=== PATIENT | male | born 1930 | race Caucasian/White ===

== ENCOUNTER 2019-03-01 20:06 | Emergency (ER) | payer MEDICARE, OTHER ==
--- NOTE | 2019-03-01 20:19 | EDM.PDOC ---
ED HPI GENERAL MEDICAL PROBLEM - General Chief Complaint: Trauma Stated Complaint: [facility] Time Seen by Provider: 03/01/19 20:07 Source of Information: Reports: Patient, Family (3 sons) History Limitations: Reports: No Limitations - History of Present Illness INITIAL COMMENTS - FREE TEXT/NARRATIVE: A trauma alert was called for this patient, as the patient is on Plavix. Mr. Cruz is a very pleasant 88-year-old man with a past medical history significant for a possible TIA and anxiety due to severe claustrophobia, that he has had all of his life. The patient states that he went to the bathroom in his home just after 19:00 tonight, and as soon as he was in there, started feeling claustrophobic and anxious. He states that he was breathing heavily. He states that he was in the bathroom for about 5 minutes before he had to get out of there, and about the time that he exited the bathroom, he suffered a syncopal episode, falling forward and striking the left side of his face. I am told by the patient's son, who is an EMT in [place] and is present in the ED tonight, that the patient's daughter, who was at the patient's residence, heard the patient fall and called her brother. The patient's son states that he was by his father's side within 5 minutes of the event, and by that time, the patient was lucid. The patient denies prior similar events. The patient denies recent illness, such as fever, chills, cough, dyspnea, chest pain, palpitations, nausea, vomiting, constipation, diarrhea, abdominal pain, urinary symptoms, his weight gain or weight loss, recent bloody bowel movements or black bowel movements, recent joint aches, headaches, or rashes. The [facility] [place]. - Related Data Allergies Allergy/AdvReac Type Severity Reaction Status Date / Time No Known Allergies Allergy Verified 03/01/19 20:20 Home Meds: Home Meds Aspirin [Halfprin] 81 mg PO DAILY 03/01/19 [History] Budesonide/Formoterol Fumarate [Symbicort 160-4.5 Mcg Inhaler] 2 puff INH BID [History] Cholecalciferol (Vitamin D3) [Vitamin D3] 0 unit PO DAILY 03/01/19 [History] Citalopram [Citalopram HBr] 10 mg PO DAILY 03/01/19 [History] Clopidogrel [Plavix] 75 mg PO DAILY 03/01/19 [History] Furosemide [Lasix] 40 mg PO ASDIRECTED 03/01/19 [History] Lisinopril [Zestril] 40 mg PO DAILY 03/01/19 [History] Tiotropium [Spiriva] 1 puff INH DAILY 03/01/19 [History] atorvaSTATin [Lipitor] 0 mg PO DAILY 03/01/19 [History] Past Medical History Cardiovascular History: Reports: Heart Failure (mild, diastolic), High Cholesterol, Hypertension Genitourinary History: Reports: BPH Musculoskeletal History: Reports: Arthritis, Fracture (left foot) Neurological History: Reports: TIA (possible) Psychiatric History: Reports: Anxiety, Other (See Below) (Severe claustrophobia) Endocrine/Metabolic History: Reports: Obesity/BMI 30+ - Past Surgical History HEENT Surgical History: Reports: Cataract Surgery (bilateral) GI Surgical History: Reports: Colonoscopy Social & Family History - Tobacco Use Smoking Status *Q: Former Smoker Month/Year Tobacco Last Used: Quit 1994 - Alcohol Use Alcohol Use History: Yes Alcohol Use Frequency: Daily (1-2 drinks) - Recreational Drug Use Recreational Drug Use: No - Living Situation & Occupation Living situation: Reports: , Alone (spouse in [place]) Occupation: Retired Review of Systems - Review of Systems Review Of Systems: Comprehensive ROS is negative, except as noted in HPI. ED EXAM, GENERAL - Physical Exam Exam: See Below Exam Limited By: No Limitations General Appearance: Alert, WD/WN, No Apparent Distress Eye Exam: Right Eye: Normal Inspection, Left Eye: Periorbital Changes ( Ecchymosis and swelling), Bilateral Eye: EOMI Ears: Normal External Exam, Normal Canal, Hearing Grossly Normal, Normal TMs Nose: Normal Inspection, Normal Mucosa, No Blood Throat/Mouth: Normal Inspection, Normal Lips, Normal Teeth, Normal Gums, Normal Oropharynx, Normal Voice, No Airway Compromise Head: Normocephalic, Other (Approximately 1.5 cm laceration left forehead containing an arterial bleed) Neck: Normal Inspection, Supple, Non-Tender, Full Range of Motion Respiratory/Chest: No Respiratory Distress, Lungs Clear, Normal Breath Sounds, No Accessory Muscle Use Cardiovascular: Normal Peripheral Pulses, Regular Rate, Rhythm, No Edema, No Gallop, No JVD, No Murmur, No Rub Peripheral Pulses: 4+: Radial (L), Radial (R) GI/Abdominal: Normal Bowel Sounds, Soft, Non-Tender, No Organomegaly, No Distention, No Abnormal Bruit, No Mass (Male) Exam: Deferred Rectal (Males) Exam: Deferred Back Exam: Normal Inspection, Full Range of Motion, NT Extremities: Normal Inspection, Normal Range of Motion, No Pedal Edema, Normal Capillary Refill Neurological: Alert, Oriented, CN II-XII Intact, Normal Cognition, No Motor/ Sensory Deficits Psychiatric: Normal Affect Skin Exam: Warm, Dry, Intact, Normal Color, No Rash ED TRAUMA PROCEDURES - Laceration/Wound Repair Left Forehead Lac/Wound Length In cm: 3.0 Appearance: Subcutaneous, Irregular, Clean Distal NVT: Neuro & Vascular Intact, No Tendon Injury Anesthetic Type: Local Local Anesthesia - Lidocaine (Xylocaine): 1% with EPI Local Anesthetic Volume: 2cc Skin Prep: Providone-Iodine (Betadine) Exploration/Debridement/Repair: Wound Explored, In a Bloodless Field, Explored to Base, No Foreign Material Found Closed With: Sutures Suture Size: 3-0 # of Sutures: 11 Suture Type: Nylon (F:), Running Drain Placement: No Sterile Dressing Applied: None Tetanus Status Addressed: Yes Complications: No EKG INTERPRETATION EKG Date: 03/01/19 Time: 20:14 Rhythm: NSR (with 2 PACs and 1 PVC) Rate (Beats/Min): 76 [place]: Normal P-Wave: Present QRS: Normal ST-T: Normal QT: Prolonged (QTc 600 ms) Comparison: NA - No Prior EKG Course - Vital Signs Last Recorded V/S: Last Vital Signs Temp 36.4 C 03/01/19 20:32 Pulse 73 03/01/19 20:32 Resp 33 H 03/01/19 20:32 BP 145/76 H 03/01/19 20:32 Pulse Ox 87 L 03/01/19 20:32 Orthostatic Blood Pressure [ 148/85 Standing] Orthostatic Blood Pressure [ 142/93 Supine] - Orders/Labs/Meds Orders: Active Orders 24 hr Category Date Time Status EKG Documentation Completion [RC] STAT Care 03/01/19 20:22 Active Orthostatic Vital Signs [RC] STAT Care 03/01/19 20:21 Active Labs: Laboratory Tests 03/01/19 03/01/19 03/01/19 Range/Units 20:30 20:30 20:30 WBC 4.76 (4.23-9.07) K/mm3 RBC 4.32 L (4.63-6.08) M/mm3 Hgb 13.9 (13.7-17.5) gm/dl Hct 41.6 (40.1-51.0) % MCV 96.3 H (79.0-92.2) fl MCH 32.2 (25.7-32.2) pg MCHC 33.4 (32.2-35.5) g/dl RDW Std Deviation 47.8 H (35.1-43.9) fL Plt Count 130 L (163-337) K/mm3 MPV 10.7 (9.4-12.3) fl Neut % (Auto) 70.0 H (34.0-67.9) % Lymph % (Auto) 19.5 L (21.8-53.1) % [place] % (Auto) 10.3 (5.3-12.2) % Eos % (Auto) 0 L (0.8-7.0) Baso % (Auto) 0.2 (0.1-1.2) % Neut # (Auto) 3.33 (1.78-5.38) K/mm3 Lymph # (Auto) 0.93 L (1.32-3.57) K/mm3 [place] # (Auto) 0.49 (0.30-0.82) K/mm3 Eos # (Auto) 0.00 L (0.04-0.54) K/mm3 Baso # (Auto) 0.01 (0.01-0.08) K/mm3 D-Dimer, Quantitative 0.51 H (0.19-0.50) mg/L Sodium 139 (136-145) mEq/L Potassium 3.9 (3.5-5.1) mEq/L Chloride 104 (98-107) mEq/L Carbon Dioxide 26 (21-32) mEq/L Anion Gap 12.9 (5-15) BUN 19 H (7-18) mg/dL Creatinine 1.0 (0.7-1.3) mg/dL Est Cr Clr Drug Dosing 44.42 mL/min Estimated GFR (MDRD) > 60 (>60) mL/min BUN/Creatinine Ratio 19.0 H (14-18) Glucose 106 (83-115) mg/dL Calcium 8.5 (8.5-10.1) mg/dL Magnesium 1.9 (1.8-2.4) mg/dl Total Bilirubin 0.4 (0.2-1.0) mg/dL AST 26 (15-37) U/L ALT 38 (16-63) U/L Alkaline Phosphatase 83 (46-116) U/L Troponin I 0.026 (0.00-0.056) ng/mL Total Protein 6.4 (6.4-8.2) g/dl Albumin 3.5 (3.4-5.0) g/dl Globulin 2.9 gm/dL Albumin/Globulin Ratio 1.2 (1-2) Meds: Medications Discontinued Medications Generic Name Dose Route Start Last Admin Trade Name Freq PRN Reason Stop Dose Admin Lidocaine/Epinephrine 20 ml 03/01/19 21:27 03/01/19 21:36 Xylocaine 1% With Epinephrine 1:100,000 INJECT 03/01/19 21:28 20 ml ONETIME ONE Administration - Re-Assessments/Exams Free Text/Narrative Re-Assessment/Exam: 03/01/19 20:17 Because the patient is on Plavix, and because we have no prior imaging study of his head on record (the patient has not been to this ED previously) I have ordered a CT of his head without contrast, in addition to a workup that will include blood work, orthostatics, and an ECG. 03/01/19 20:48 CT of the head without contrast is read by Dr. Garcia as: 1. Soft tissue swelling and soft tissue injury as noted above. 2. No acute intracranial abnormality is appreciated. No acute skull fracture is seen. 03/01/19 21:14 The patient is not orthostatic. 03/01/19 21:24 The patient's CBC is remarkable for platelets mildly depressed at 130,000, with the remainder of his CBC being unremarkable. His CMP is remarkable for a BUN slightly elevated at 19 with a creatinine normal at 1.0. The remainder of his CMP is unremarkable. His magnesium level is within normal limits at 1.2. His troponin is within normal limits at 0.026. His D-dimer is slightly elevated at 0.51. The patient's slightly elevated D-dimer is not consistent with a pulmonary embolus, therefore I am not recommending a CT angiogram of the chest. 03/01/19 22:00 The patient's left forehead laceration was anesthetized with 1% lidocaine with epinephrine and was then approximated with 11 simple running sutures using 3-0 Ethilon. the patient tolerated the procedure very well. The sutures should be ready for removal by 03/11/2019. I suspect that the patient hyperventilated while in the bathroom, then suffered a syncopal episode when he exited the bathroom. I do not suspect a seizure, as he was not postictal when his son arrived about 5 minutes after the event, and his labs are not consistent with a patient recently suffering a seizure. We discussed the option of the patient being placed into observation, however, the patient would prefer to go home. Departure - Departure Time of Disposition: 22:05 Disposition: Home, Self-Care 01 Condition: Good Clinical Impression: Syncope and collapse, Forehead laceration, Ecchymosis of left eye - Discharge Information *PRESCRIPTION DRUG MONITORING PROGRAM REVIEWED*: Not Applicable *COPY OF PRESCRIPTION DRUG MONITORING REPORT IN PATIENT GEORGE: Not Applicable Instructions: Laceration Care, Adult, [id number], Syncope, [id number] Referrals: Akanksha Romero PA-C [Ordering Only Provider] - Forms: ED Department Discharge Additional Instructions: You were seen in the emergency room after passing out, falling, and cutting your forehead. Workup in the ER included blood work, positional blood pressure checks, an ECG, and a CT scan of your head without contrast. Your entire workup was unremarkable. You have not suffered a stroke. You have not suffered a heart attack. You do not have a blood clot in your lungs. You are not anemic. No electrolyte abnormalities were found. You are not dehydrated. Based on your history and physical exam, you most likely passed out because you were hyperventilating while in the bathroom, due to claustrophobia. The cut on your forehead was closed with 11 running sutures. Keep the wound clean with ordinary soap and water when you bathe. Pat dry. You may place a bandage over the wound, especially at night, to prevent blood from getting on your pillowcase. You do not need to apply antibiotic ointment. Take [id number] Tylenol or ibuprofen as needed for discomfort. The sutures should be ready for removal by 03/11/2019. They can be removed at the walk-in clinic, by a nurse at your doctor's office, or in the ER. Do not try to remove them yourself. Follow-up with your PCP, JESSIKA Escobar, to discuss treatment options for your claustrophobia-induced anxiety. If any other problems, please do not hesitate to return to the ER. Sepsis Event Note - Focused Exam Vital Signs: Vital Signs Temp Pulse Resp BP Pulse Ox 03/01/19 20:32 36.4 C 73 33 H 145/76 H 87 L 03/01/19 20:19 87 25 H 153/114 H Date Exam was Performed: 03/01/19 Time Exam was Performed: 22:48 - My Orders Last 24 Hours: My Active Orders 03/01/19 20:21 Orthostatic Vital Signs [RC] STAT 03/01/19 20:22 EKG Documentation Completion [RC] STAT - Assessment/Plan Last 24 Hours: My Active Orders 03/01/19 20:21 Orthostatic Vital Signs [RC] STAT 03/01/19 20:22 EKG Documentation Completion [RC] STAT
--- NOTE | 2019-03-01 20:45 | CT ---
Head CT Technique: Multiple axial sections through the brain were obtained. Intravenous contrast was not utilized. Comparison: No prior intracranial imaging is available. Findings: Soft tissue swelling is noted within the left periorbital region and left forehead scalp. Soft tissue injury is also noted in this area with overlying bandage being seen. Ventricles along with basal cisterns and sulci over the convexities are moderately prominent. Diminished density is noted within the periventricular white matter and subcortical white matter compatible with small vessel ischemic demyelination change. No other abnormal parenchymal densities are seen. No evidence of intracranial hemorrhage. No midline shift or mass effect is seen. Atherosclerotic calcification is seen within the vertebral vessels and within the carotid siphon. No acute calvarial abnormality is appreciated. No acute paranasal sinus disease is seen. No acute mastoid sinus disease is seen. Impression: 1. Soft tissue swelling and soft tissue injury as noted above. 2. No acute intracranial abnormality is appreciated. No acute skull fracture is seen. Diagnostic code #2 Study was dictated in [place] Standard Time
[2019-03-01] MEDS ORDERED: Lidocaine 1% with EPINEPHrine 1:100,000 20 ML MDV INJECT ONE (21:27)
== END 2019-03-01 22:43 | disposition home or self-care (01) ==
LOC: JD.ED 20:06
DX: R55 Syncope and collapse (principal); S01.81XA Laceration without foreign body of other part of head, initial encounter; I11.0 Hypertensive heart disease with heart failure; I50.30 Unspecified diastolic (congestive) heart failure; E78.00 Pure hypercholesterolemia, unspecified; M19.90 Unspecified osteoarthritis, unspecified site; F41.9 Anxiety disorder, unspecified; E66.9 Obesity, unspecified; Z68.36 Body mass index [BMI] 36.0-36.9, adult; Z87.891 Personal history of nicotine dependence; Z79.82 Long term (current) use of aspirin; Z79.02 Long term (current) use of antithrombotics/antiplatelets; Z79.899 Other long term (current) drug therapy; W19.XXXA Unspecified fall, initial encounter; W22.8XXA Striking against or struck by other objects, initial encounter; Y92.000 Kitchen of unspecified non-institutional (private) residence as the place of occurrence of the external cause
CPT/HCPCS: 12013; 36415; 70450; 70450-26; 80053; 83735; 84484; 85025; 85379; 93005; 93010; 99282; 99285-25

== ENCOUNTER 2020-03-22 22:25 | Emergency (ER) | payer OTHER, MEDICARE ==
--- NOTE | 2020-03-22 22:56 | EDM.PDOC ---
ED HPI GENERAL MEDICAL PROBLEM - General Chief Complaint: Respiratory Problem Stated Complaint: COUGHING POST OPEN HEART SURGERY +1 MONTH AGO Time Seen by Provider: 03/22/20 22:36 Source of Information: Reports: Patient, Family (Son) History Limitations: Reports: No Limitations - History of Present Illness INITIAL COMMENTS - FREE TEXT/NARRATIVE: Mr. Cruz is a pleasant 89-year-old gentleman who presents to the ED after he developed a paroxysmal non-productive cough around 19:30 tonight, after drinking a liquid sleep aid. He may have aspirated the medicine. No associated dyspnea. EMS was called to the patient's residence. They reportedly gave the patient a neb treatment, which did not help, however, the patient declined their transfer to the ED, having his son bring him instead. The patient states that he often gets similar symptoms, although not necessarily as severe, after eating or drinking foods. Here in the ED, the patient's initial BP is found to be modestly elevated at 155/82, otherwise, he is hemodynamically stable, afebrile, saturating 93% on room air. 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 Otherwise, the patient denies having a recent fever, chills, sore throat, ear pain, nasal or sinus congestion, cough, dyspnea, chest pain, palpitations, nausea, vomiting, constipation, diarrhea, abdominal pain, urinary symptoms, recent weight gain or weight loss, recent bloody bowel movements or black bowel movements, recent joint aches, headaches, or rashes. The patient's PCP is Dr. Krysta Rincon, at the [facility]. He does not recall the name of his Cardiac Surgeon at [facility] - I later learned that it was Drs. Gomez and Brenna. He states that he already received an influenza vaccine this season. - Related Data Allergies Allergy/AdvReac Type Severity Reaction Status Date / Time No Known Allergies Allergy Verified 03/22/20 22:36 Home Meds: Home Meds Aspirin [Halfprin] 81 mg PO DAILY 03/01/19 [History] Budesonide/Formoterol Fumarate [Symbicort 160-4.5 Mcg Inhaler] 1 puff INH BID 03/01/19 [History] Cholecalciferol (Vitamin D3) [Vitamin D3] 1,000 unit PO DAILY 03/01/19 [History] Citalopram [Citalopram HBr] 20 mg PO DAILY 03/01/19 [History] Clopidogrel [Plavix] 75 mg PO DAILY 03/01/19 [History] Furosemide [Lasix] 20 mg PO ASDIRECTED 03/01/19 [History] atorvaSTATin [Lipitor] 40 mg PO DAILY 03/01/19 [History] Acetaminophen 650 mg PO Q6HR PRN 03/22/20 [History] Albuterol Sulfate [Albuterol Sulfate HFA] 8.5 gm INH Q4HR PRN 03/22/20 [History] Metoprolol Succinate [Toprol Xl] 50 mg PO DAILY 03/22/20 [History] Potassium Chloride 20 meq PO BID 03/22/20 [History] oxyCODONE HCl/Acetaminophen [Percocet 5-325 mg Tablet] 1 each PO Q4H PRN 03/22/20 [History] Past Medical History HEENT History: Reports: Impaired Vision Cardiovascular History: Reports: Heart Failure (mild, diastolic), High Cholesterol, Hypertension Genitourinary History: Reports: BPH Musculoskeletal History: Reports: Fracture (left foot), Osteoarthritis Neurological History: Reports: TIA (possible) Psychiatric History: Reports: Anxiety, Other (See Below) (Severe claustrophobia) Endocrine/Metabolic History: Reports: Obesity/BMI 30+ - Past Surgical History HEENT Surgical History: Reports: Cataract Surgery (bilateral) Cardiovascular Surgical History: Reports: Valve Replacement (Fry LARRY 3 transcatheter aortic valve replacement, 02/19/2020 at [facility], 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 ED EXAM, GENERAL - Physical Exam Exam: See Below Exam Limited By: No Limitations General Appearance: Alert, WD/WN, No Apparent Distress (coughs frequently) Eye Exam: Bilateral Eye: EOMI, Normal Inspection Ears: Normal External Exam, Hearing Grossly Normal Nose: Normal Inspection Throat/Mouth: Normal Inspection, Normal Lips, Normal Voice, No Airway Compromise Head: Atraumatic, Normocephalic Neck: Normal Inspection, Full Range of Motion Respiratory/Chest: No Respiratory Distress, Lungs Clear, Normal Breath Sounds, No Accessory Muscle Use. No: Decreased Breath Sounds, Crackles, Rhonchi, Wheezing, Stridor, Prolonged Expiration Cardiovascular: Normal Peripheral Pulses, Regular Rate, Rhythm, No Gallop, No JVD, No Murmur, No Rub Peripheral Pulses: 3+: Radial (L), Radial (R) GI/Abdominal: Normal Bowel Sounds, Soft, Non-Tender, No Organomegaly, No Distention, No Abnormal Bruit, No Mass Back Exam: Normal Inspection, Full Range of Motion, NT Extremities: Normal Inspection, Normal Range of Motion, No Pedal Edema, Normal Capillary Refill Neurological: Alert, Oriented, Normal Cognition, No Motor/Sensory Deficits Psychiatric: Normal Affect Skin Exam: Warm, Dry, Intact, Normal Color, No Rash #1 Interpretation EKG Date: 03/22/20 Time: 22:41 Rhythm: Other (Ectopic atrial rhythm) Rate (Beats/Min): 73 [place]: Normal QRS: LBBB QT: Normal Comparison: Change From Previous EKG (Was in NSR with no LBBB on 03/01/2019) Course - Vital Signs Last Recorded V/S: Last Vital Signs Temp 36.1 C 03/22/20 22:33 Pulse 82 03/22/20 23:05 Resp 18 03/22/20 23:05 BP 140/64 03/22/20 23:05 Pulse Ox 92 L 03/22/20 23:05 - Orders/Labs/Meds Orders: Active Orders 24 hr Category Date Time Status EKG 12 Lead [EKG Documentation Completion] [RC] ROUTINE Care 03/22/20 22:40 Active Chest 2V [CR] Stat Exams 03/22/20 22:46 Taken - Re-Assessments/Exams Free Text/Narrative Re-Assessment/Exam: 03/22/20 22:47 As above, the patient began coughing after drinking a liquid sleep aid around 19:30 tonight. He likely aspirated all or some of the medication, causing her tracheal irritation. Although his oxygen saturation is only 93% on room air, his lungs are entirely clear to auscultation with no stridor or crackles. I have ordered a chest x-ray to evaluate for an infiltrate. 03/22/20 23:03 Two-view chest radiograph reviewed. 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 The cardiac silhouette is within normal limits, however, the aorta is tortuous. There is aortosclerosis. Sternotomy wires and a transcatheter aortic valve replacement mesh seen in appropriate position. No pulmonary vascular congestion. No pleural effusions. No focal infiltrate. No pneumothorax. There is hyperinflation and bilateral diaphragmatic flattening, consistent with COPD. Formal read per the Radiologist pending. 03/22/20 23:32 The patient's CXR images were pushed to [facility]. Case discussed with Hu at [facility] at 23:23. He looked the patient up and found that the surgery had been done by Drs. Gomez and Brenna. Case then discussed with Dr. Ceja, Cardiac Surgeon, at 23:30. He recalled that the patient received an Fry LARRY 3 TAVR, and that he suffered a c atheter perforation of his LV requiring return to the OR for sternotomy and repair. He feels, however, that consuelo's presentation is simply due to aspiration, and is not a complication of his surgery. 03/22/20 23:47 ECG and chest x-ray results, and my conversation with Dr. Ceja discussed with the patient and his son. Unfortunately, there are no medicines that I can give to treat his cough, since the source of his cough is from irritation of his trachea. Had the source of his cough been from the cough center of his brainstem, and opioid could be given, but an opioid would not be effective in this case. This will simply have to run its course. I offered to keep the patient here for observation, but he would prefer to go home. For consuelo's purposes, I am recommending that he remain more upright until the coughing stops. In the future, he can try to prevent aspiration by putting ThickenUp in his liquids, and trying a chin tuck maneuver when swallowing. If his symptoms persist or if he recurrently aspirates, he will need to follow-up with his PCP to arrange for a swallow study. Departure - Departure Time of Disposition: 23:49 Disposition: Home, Self-Care 01 Condition: Good Clinical Impression: Aspiration of liquid - Discharge Information *PRESCRIPTION DRUG MONITORING PROGRAM REVIEWED*: Not Applicable *COPY OF PRESCRIPTION DRUG MONITORING REPORT IN PATIENT GEORGE: Not Applicable Referrals: Krysta Rincon MD [Primary Care Provider] - Nick Gomez MD [Ordering Only Provider] - Kwadwo Ceja MD [Ordering Only Provider] - Forms: ED Department Discharge Additional Instructions: You were seen in the emergency room after developing a cough after drinking a liquid sleeping medicine tonight. Work-up in the ER included an ECG and a chest x-ray. Both were unremarkable. You do not have pneumonia or pneumonitis. Your case was discussed with your Cardiac Surgeon Dr. Kwadwo Ceja. Both he and I agree that the cause of your cough is most likely due to aspiration = some or all of the medicine that you drank tonight went down the windpipe in stead of the food pipe, causing irritation of your trachea, causing your cough. Unfortunately, there are no medicines that can be given at this time to stop your cough - it will have to run its course. We recommend that you stay in a more upright position tonight, until your cough stops. In the future, consider putting ThickenUp in your thin liquids, such as coffee, tea, or even water. This will make your liquids thicker, making it easier for your swallowing mechanism to put the liquid down the food pipe instead of the windpipe. In addition, consider performing a "chin tuck" maneuver when swallowing, by pulling your head backwards and tipping your chin down when you swallow liquids. If your symptoms persist or recur, please follow-up with your PCP, Dr. Krysta Rincon, at the [facility], to arrange for a swallow evaluation. If any other problems, please do not hesitate to return to the ER. Sepsis Event Note (ED) - Evaluation Sepsis Screening Result: No Definite Risk - Focused Exam Vital Signs: Vital Signs Temp Pulse Resp BP Pulse Ox 03/22/20 23:05 82 18 140/64 92 L 03/22/20 22:33 36.1 C 84 20 155/82 H 93 L - My Orders Last 24 Hours: My Active Orders 03/22/20 22:40 EKG 12 Lead [EKG Documentation Completion] [RC] ROUTINE 03/22/20 22:46 Chest 2V [CR] Stat - Assessment/Plan Last 24 Hours: My Active Orders 03/22/20 22:40 EKG 12 Lead [EKG Documentation Completion] [RC] ROUTINE 03/22/20 22:46 Chest 2V [CR] Stat
--- NOTE | 2020-03-23 09:06 | CR ---
Chest: 2 views of the chest were obtained. Comparison: Prior chest x-ray of 04/30/19. Heart size is normal. Tortuous thoracic aorta is seen. Previous sternotomy is noted. Prosthetic heart valve is noted. Lungs are clear with no acute parenchymal change. Scattered degenerative change is seen within the spine. Impression: 1. Prior surgery for prosthetic heart valve. 2. Nothing acute is otherwise seen on frontal chest x-ray. Diagnostic code #2
== END 2020-03-23 00:05 | disposition home or self-care (01) ==
LOC: JD.ED 22:25
DX: T17.990A Other foreign object in respiratory tract, part unspecified in causing asphyxiation, initial encounter (principal); E78.00 Pure hypercholesterolemia, unspecified; I11.0 Hypertensive heart disease with heart failure; I50.9 Heart failure, unspecified; M19.90 Unspecified osteoarthritis, unspecified site; E66.9 Obesity, unspecified; Z79.82 Long term (current) use of aspirin; Z79.899 Other long term (current) drug therapy; Z86.73 Personal history of transient ischemic attack (TIA), and cerebral infarction without residual deficits; Z79.02 Long term (current) use of antithrombotics/antiplatelets; Z68.32 Body mass index [BMI] 32.0-32.9, adult
CPT/HCPCS: 71046; 71046-26; 93005; 93010; 99283-25; 99284